=== PATIENT | female | born 1935 | race Caucasian/White ===

== ENCOUNTER 2017-07-30 06:24 | Inpatient (IN) | payer OTHER ==
[2017-07-04 10:23] VITALS: BMI 28.0
--- NOTE | 2017-07-04 10:55 | PAT Medication Instructions ---
Service Date Jul 04, 2017. Current Home Medication List Ascorbic Acid (Vitamin C), 1 TAB PO BID Atenolol (Tenormin), 50 MG PO QPM Calcium Carbonate-Vitamin D (Calcium + D), 1 TAB PO BID Cholecalciferol (Vitamin D3), 1 TAB PO QAM Cinnamon (Cinnamon Extract), 1 CAP PO NOON Citalopram Hydrobromide (Citalopram Hydrobromide), 1 TAB PO NOON Cyanocobalamin (Vitamin B12 500MCG), 500 MCG PO NOON Ibuprofen (Advil), 400 MG PO PRN Lisinopril/Hctz (Zestoretic 20MG/12.5MG), 1 TAB PO QAM Lovastatin (Mevacor), 20 MG PO QPM Metformin Hcl (Glucophage), 500 MG PO BID Multivitamin (Multivitamin), 1 TAB PO QPM Ocuvite Preservision (Ocuvite Preservision), 1 TAB PO BID [Iron], 1 TAB PO QPM [Magnesium], 250 MG PO NOON [Potassium], 99 MG PO QPM Medication Instructions For Your Scheduled Surgery - Check with surgeon for instructions: Ibuprofen (Advil), 400 MG PO PRN - Hold the following medications 2 weeks prior to surgery: Cinnamon (Cinnamon Extract), 1 CAP PO NOON - Hold the following medications the morning of surgery: Ascorbic Acid (Vitamin C), 1 TAB PO BID Calcium Carbonate-Vitamin D (Calcium + D), 1 TAB PO BID Cholecalciferol (Vitamin D3), 1 TAB PO QAM Cyanocobalamin (Vitamin B12 500MCG), 500 MCG PO NOON Lisinopril/Hctz (Zestoretic 20MG/12.5MG), 1 TAB PO QAM Metformin Hcl (Glucophage), 500 MG PO BID Multivitamin (Multivitamin), 1 TAB PO QPM Ocuvite Preservision (Ocuvite Preservision), 1 TAB PO BID [Magnesium], 250 MG PO NOON - Take the following medications the morning of surgery with a sip of water: Citalopram Hydrobromide (Citalopram Hydrobromide), 1 TAB PO NOON - Take the following medications as scheduled the night before surgery: [Iron], 1 TAB PO QPM [Potassium], 99 MG PO QPM Ocuvite Preservision (Ocuvite Preservision), 1 TAB PO BID Metformin Hcl (Glucophage), 500 MG PO BID Lovastatin (Mevacor), 20 MG PO QPM Calcium Carbonate-Vitamin D (Calcium + D), 1 TAB PO BID Atenolol (Tenormin), 50 MG PO QPM If you have any questions please call us at [phone] or [phone] or [phone]
--- NOTE | 2017-07-04 11:56 | DIAGNOSTIC IMAGING REPORT ---
CHEST 2 VIEWS ROUTINE CLINICAL HISTORY: Preoperative chest COMPARISON STUDY: 10/17/2009 FINDINGS: The cardiac and mediastinal contours are normal. There is no evidence of focal pulmonary consolidation. There is no evidence of failure. No pleural effusions are visualized.[ Surgical clips project over the left chest wall/breast IMPRESSION: No active disease in the chest. Electronically signed by: Adriano Walton M.D. 07/04/2017 11:55 AM Dictated Date/Time: 07/04/2017 11:54 AM
[2017-07-04 12:12] LABS: BASO % 0.2 %; BASO ABS # 0.01 K/uL (0-0.2); EOS % 1.3 %; EOS ABS # 0.06 K/uL (0-0.5); HEMATOCRIT 36.7 % (37-47); HEMOGLOBIN 12.7 g/dL (12.0-16.0); IG# 0.01 K/uL (0.00-0.02); LYMPH % 40.1 %; LYMPH ABS # 1.82 K/uL (1.2-3.4); MEAN CELL VOLUME 94.6 fL (80-100); MEAN CORPUSCULAR HEMOGLOBIN 32.7 pg (25-34); MEAN CORPUSCULAR HGB CONC 34.6 g/dl (32-36); MEAN PLATELET VOLUME 10.8 fL (7.4-10.4); MONO ABS # 0.68 K/uL (0.11-0.59); NEUT % 43.2 %; NEUT ABS # 1.96 K/uL (1.4-6.5); PLATELET COUNT 147 K/uL (130-400); RED CELL DISTRIBUTION WIDTH CV 13.7 % (11.5-14.5); RED CELL DISTRIBUTION WIDTH SD 47.1 fL (36.4-46.3); WHITE BLOOD COUNT 4.54 K/uL (4.8-10.8)
[2017-07-04 12:20] LABS: INR 0.9 (0.9-1.1); PTT PATIENT 23.8 SECONDS (21.0-31.0)
[2017-07-04 13:18] LABS: ALBUMIN 3.6 gm/dl (3.4-5.0); CREATININE 0.93 mg/dl (0.60-1.20); POTASSIUM 4.8 mmol/L (3.5-5.1)
--- NOTE | 2017-07-17 14:17 | HISTORY & PHYSICAL EXAMINATION ---
DATE OF ADMISSION: 07/30/2017 CHIEF COMPLAINT: Right hip pain. HISTORY OF PRESENT ILLNESS: Anuja is an 82-year-old female with a 6-month history of right hip pain. The patient rates her pain an 8/10. She has pain with her daily activities. She has limited standing and walking tolerance. Pain is worse with weightbearing. The patient has had injections without relief. She ambulates with a cane and does participate in exercise program. She has failed conservative treatment and is scheduled for right total hip arthroplasty. PAST MEDICAL HISTORY: Hypertension, diabetes. She denies heart disease or DVT. PAST SURGICAL HISTORY: Lumbar surgery, hysterectomy, carpal tunnel release, tonsil surgery and breast surgery. SOCIAL HISTORY: The patient denies alcohol or tobacco use. She lives in a single story home. She lives alone and is retired. FAMILY HISTORY: Negative for DVT. MEDICATIONS: PreserVision, escitalopram 20 mg, multivitamin, ferrous sulfate, vitamin C 500 mg, cinnamon bark 500 mg, vitamin B12, calcium, Advil 200 mg, atenolol 50 mg, metformin 500 mg, magnesium 200 mg, lovastatin 20 mg, lisinopril 10 mg, vitamin D3. ALLERGIES: LORTAB. REVIEW OF SYSTEMS: See HPI. Ten other systems reviewed, all negative. PHYSICAL EXAMINATION: VITAL SIGNS: Height 5 feet 4 inches, weight 163 pounds, BMI 28. GENERAL: This is a well-developed, well-nourished female who is alert and oriented x3. Mood and affect are appropriate. HEENT: Normocephalic, atraumatic. Mucous membranes are moist and intact. NECK: Supple without lymphadenopathy. HEART: Regular rate and rhythm without murmurs, rubs or gallops. LUNGS: Clear to auscultation without wheezes or rhonchi. ABDOMEN: Soft and nontender. Bowel sounds are equal and active. EXTREMITIES: No ecchymosis, redness or warmth. Log roll of the hip reproduces pain in the groin. Range of motion is decreased. The patient has decreased sensation along the anterior thigh. She has full dorsi and plantar flexion and is otherwise neurovascularly intact. X-RAY EXAMINATION: AP and lateral views show joint space narrowing and osteophyte formation. IMPRESSION: Degenerative joint disease, right hip. PLAN: The patient will be admitted for a right total hip arthroplasty, direct anterior. We will plan on aspirin 325 mg for DVT prophylaxis. She is going to do home health versus inpatient rehab upon discharge. Her PCP is Dr. Lu in [place].
[2017-07-30] VITALS (8 sets, daily range): BP systolic 104–188; BP diastolic 55–89; PULSE 58–69; TEMP 36.3–36.6; O2SAT 94–100; Ht 162.6 cm; Wt 74.7 kg
[~2017-07-30] VITALS: Ht 162.6 cm; Wt 74.7 kg
[~2017-07-30 06:24] MED LIST: ACETAMINOPHEN 500 MG TAB PO SCH; ASCA500 PO; ATEN50TA8 PO; CALC600T9 PO; CEFAZOLIN 1000MG IV PUSH 7.5 ML IV SCH; CHOL1000 PO; CINN500C13 PO; CITA20TA4 PO; CYAN500T13 PO; CeleBREX 200 MG CAP PO SCH; DEXAMETHASONE 4 MG TAB PO SCH; FAMOTIDINE 20 MG TAB PO SCH; GABAPENTIN 300 MG CAP PO SCH; GLC/500 PO; IBUP-1277 PO; IRON PO; LACTATED RINGER'S 1000ML 1,000 ML IV SCH; LACTATED RINGER'S 1000ML 500 ML IV SCH; LISI-787 PO; LOVA20TA4 PO; MAGNESIUM PO; METOCLOPRAMIDE HCL 10 MG TAB PO SCH; MULT-190 PO; MULT-506 PO; POTASSIUM PO; ROPIVACAINE 5MG/ML 30 ML 150 MG, BUPIVACAINE 0.5% MPF INJ 30 ML, EpINEphrine HCL INJ 0.... INFIL SCH
[2017-07-30] MEDS ORDERED: BUPIVACAINE 0.5 % 5 MG/1 ML PF 10ML VIAL ONE (06:32)
[2017-07-30] MEDS ORDERED: LIDOCAINE HCL 2% 2 ML VIAL (20MG/ML) ONE (06:54)
[2017-07-30] MEDS ORDERED: MIDAZOLAM HCL 1 MG/ML 2ML VIAL ONE (06:54)
[2017-07-30] MEDS ORDERED: KETAMINE HCL INJ 50 MG/ML 10 ML VIAL ONE (06:54)
[2017-07-30] MEDS ORDERED: FENTANYL CITRATE INJ 50 MCG/1 ML 2 ML VIAL ONE (06:54)
[2017-07-30] MEDS ORDERED: PROPOFOL IV EMULSION 10 MG/ML 20 ML VIAL IV ONE (06:54)
[2017-07-30] MEDS ORDERED: EpHEDrine SULFATE INJ 50 MG/ML AMP IV PRN (07:00)
[2017-07-30] MEDS ORDERED: ONDANSETRON INJ 2 MG/ML 2 ML VIAL IV PRN ×2 (07:00→10:45)
[2017-07-30] MEDS ORDERED: HYDROmorphone INJ 2 MG/ML SYR/VIAL IV PRN (07:00)
[2017-07-30] MEDS ORDERED: PHENYLEPHRINE 100MCG/ML 5ML SYR IV PRN (07:00)
[2017-07-30] MEDS ORDERED: ATROPINE SULFATE 0.1 MG/ML 5ML SYR IV PRN (07:00)
[2017-07-30] MEDS ORDERED: BACITRACIN 50000 UNIT VIAL ONE (07:07)
[2017-07-30] MEDS ORDERED: ORTHO JOINT ANESTHETIC ONE (07:07)
[2017-07-30] MEDS ORDERED: POVIDONE-IODINE OP SOLN 30 ML BTL ONE (07:07)
[2017-07-30] MEDS: TRANEXAMIC ACID INJ 1,000 MG x 2 Bags IV SCH ×4 (08:01→12:51)
--- NOTE | 2017-07-30 08:02 | History & Physical Bridge Note ---
H&P Re-Evaluation Bridge Note: I have examined the patient, reviewed the History & Physical and in the interval since the performance of the History & Physical I have noted the following changes of clinical significance: No changes noted
[2017-07-30] MEDS ORDERED: EpHEDrine SULFATE 50MG/5ML SYR ONE (09:14)
--- NOTE | 2017-07-30 10:28 | [facility] Post Operative Brief Note ---
Immediate Operative Summary Operative Date Jul 30, 2017. Pre-Operative Diagnosis Degenerative joint disease, right hip Post-Operative Diagnosis Degenerative joint disease, right hip Procedure(s) Performed Right Anterior Total Hip Arthroplasty Surgeon Dr. Bender Form Tamper Operator Surgeon(s) Ruth Ernandez PA-C Estimated Blood Loss 200 mL Findings Consistent with Post-Op Diagnosis Fluids (cc crystalloids) 1400 Specimens A: Right Femoral Head Drains None Anesthesia Type MAC Spinal Regional Complication(s) none Disposition Disposition: Recovery Room / PACU
[2017-07-30] MEDS ORDERED: MoRPHine SULFATE 2 MG/ML CARP IV PRN (10:45)
--- NOTE | 2017-07-30 11:27 | DIAGNOSTIC IMAGING REPORT ---
INTRAOPERATIVE RIGHT HIP 2 VIEWS CLINICAL HISTORY: Right hip arthroplasty COMPARISON STUDY: None FINDINGS: 2 fluoroscopic spot images are provided for interpretation. 62 seconds of fluoroscopic time was utilized. There are postsurgical changes of a total right hip arthroplasty. There is no dislocation. IMPRESSION: Postsurgical changes of a total right hip arthroplasty. Electronically signed by: Adriano Walton M.D. 07/30/2017 11:26 AM Dictated Date/Time: 07/30/2017 11:25 AM
--- NOTE | 2017-07-30 11:41 | DIAGNOSTIC IMAGING REPORT ---
SINGLE VIEW PELVIS; SINGLE VIEW RIGHT HIP CLINICAL HISTORY: Postoperative examination. FINDINGS: An AP portable view of the hips and pelvis with a crosstable lateral portable view of the right hip are obtained. A bipolar right hip arthroplasty is in near-anatomic alignment. A single cortical lag screw transfixes the acetabular cup. No acute fracture is identified. There are expected postoperative changes overlying the right hip including subcutaneous gas and soft tissue swelling. Degenerative sclerosis and bony overgrowth are noted at the pubic symphysis. Moderate arthritic change is seen in the left hip. IMPRESSION: Expected postoperative findings status post right hip arthroplasty. No acute fracture is seen. Electronically signed by: Oh Felix M.D. 07/30/2017 11:40 AM Dictated Date/Time: 07/30/2017 11:39 AM
--- NOTE | 2017-07-30 11:42 | Anesthesiology Progress Note ---
Anesthesia Post Op Note Date & Time Jul 30, 2017 at 11:42 Vital Signs Pain Intensity: 0 Vital Signs Past 12 Hours Date Time Temp Pulse Resp B/P (MAP) Pulse Ox O2 Delivery O2 Flow Rate FiO2 07/30/17 11:35 36.3 56 16 143/59 100 Nasal Cannula 3 07/30/17 11:25 57 16 139/68 100 Nasal Cannula 3 07/30/17 11:15 57 16 159/71 100 Nasal Cannula 3 07/30/17 11:05 60 16 153/67 100 Nasal Cannula 3 07/30/17 10:57 36.3 59 16 154/60 96 Nasal Cannula 3 07/30/17 07:30 36.4 69 20 188/89 99 Room Air Notes Mental Status: alert / awake / arousable, participated in evaluation Pt Amnestic to Procedure: Yes Nausea / Vomiting: adequately controlled Pain: adequately controlled Airway Patency, RR, SpO2: stable & adequate BP & HR: stable & adequate Hydration State: stable & adequate Anesthetic Complications: no major complications apparent
[2017-07-30] MEDS ORDERED: GLUCOSE 10 TABS/TUBE PO PRN (12:30)
[2017-07-30] MEDS ORDERED: GLUCOSE 40% GEL 15 GM TUBE PO PRN (12:30)
[2017-07-30] MEDS ORDERED: DEXTROSE 50% 50 ML SYR IV PRN (12:30)
[2017-07-30] MEDS ORDERED: GLUCAGON FOR INJ 1 MG VIAL SQ PRN (12:30)
--- NOTE | 2017-07-30 13:12 | [facility] Operative Report ---
Operative Report Operative Date Jul 30, 2017. Pre-Operative Diagnosis Degenerative joint disease, right hip Post-Operative Diagnosis Degenerative joint disease, right hip Procedure(s) Performed Right Anterior Total Hip Arthroplasty Surgeon Dr. Bender Prison Guard Surgeon(s) Ruth Ernandez PA-C Estimated Blood Loss 200 mL Findings See dictated op note Fluids 1400 Specimens A: Right Femoral Head Drains None Anesthesia Type MAC Spinal Regional Complication(s) none Disposition Recovery Room / PACU Indications The patient is a 82-year-old female who presents with severe progressive right hip DJD who has failed outpatient conservative treatments. I indicated the patient for a total hip replacement and the risks and benefits were explained in detail which included but not limited to infection, bleeding, blood clot, damage to surrounding bone, nerves, vessels, soft tissue, hip dislocation, failure of the prosthesis, leg length discrepancy, need for additional surgery and . The patient agreed to proceed with replacement of the hip and informed consent was obtained. Description of Procedure COMPONENTS USED: [employer] hip system: Acetabulum size 48, femur size 5 standard offset, femoral head 32+0, liner 32/48, acetabular screw 25mm. DESCRIPTION OF PROCEDURE: Following satisfactory spinal, the patient was supine. The left leg was placed in the well leg zuñiga and the right leg in the traction device. The right leg was prepared with ChloraPrep and draped sterilely. Following a surgical time-out, an anterior approach in the interval between the sartorius and tensor muscles was completed. Circumflex femoral vessels were identified and ligated and anterior capsulotomy was performed revealing the arthritic femoral neck and head. A femoral neck cut was made with reciprocating saw and the bone fragments removed. The acetabular self- retraining retractor was placed. Acetabular reaming was completed under fluoroscopic guidance, a 48 shell was impacted into an anatomic position and secured with a dome screw. Local anesthetic was placed and following irrigation , the polyethylene liner was placed. The femur was placed into position of external rotation, extension and adduction. Femoral canal was prepared up to the size 5 standard offset. Trial reduction with a +0 neck length head showed good soft tissue tension, leg lengths restored, and good fit and fill of the proximal canal using fluoroscopic landmarks. The hip was dislocated. The trial component was removed. The final implant was placed. The hip was irrigated and reduced. A Betadine soak was performed. After 3 minutes, the Betadine was irrigated. More local anesthetic was injected in the surround soft tissues. The capsule was then closed with 1-0 Vicryl interrupted. The fascia was closed with a running suture of #1 Vicryl, the subcutaneous tissues with 1 and 2-0 Vicryl and the skin with a running subcuticular stitch of 3-0 V-Loc. Dermabond and a dry dressing were applied. The patient tolerated the procedure well and was transported to PACU in stable condition. Due to the complex nature of the procedure, the entire surgery was performed with the operational assistance of Lucille Ernandez PA-C. The certified nursing assistant, under direct supervision, was involved in the actual performance of all aspects of the surgical procedure including hemostasis, tissue retraction and incision, instrument management, patient positioning, and wound closure. I attest to the content of the Intraoperative Record and any orders documented therein. Any exceptions are noted below. I attest to the content of the Intraoperative Record and any orders documented therein. Any exceptions are noted below.
--- NOTE | 2017-07-30 13:26 | Medical Consult ---
Consultation Note Date of Service Jul 30, 2017. ([place] ., [place]) Consultation Note CONSULTATION CHIEF COMPLAINT right hip pain HISTORY OF PRESENT ILLNESS. Anuja is an 82-year-old female seen in consultation at the request of Dr. Bender for medical management postoperatively. She underwent a right anterior total hip replacement today by Dr. Anthony. She has been having right sided hip pain for approximately the last 6 months which is failed conservative measures. PAST MEDICAL HISTORY: Hypertension diabetes mellitus type 2 on metformin. Left breast cancer PAST SURGICAL HISTORY: She has had lumbar surgery 2, hysterectomy, carpal Tunl. release, lumpectomy on the left with 1 lymph node removed. SOCIAL HISTORY: Patient is a non-smoker nondrinker lives in silk single-story home. She is retired and lives alone. FAMILY HISTORY: Family history was reviewed she denies any significant cancers diabetes or history of DVT. MEDICATIONS: 1. preservation 2. Except helping him 20 mg daily 3. Multivitamin daily 4. Vitamin C 500 mg daily 5. Metformin 500 mg twice daily 6. Lovastatin 20 mg daily 7. Lisinopril 10 mg daily 8. Vitamin D3. ALLERGIES: Lortab which cause hypotension REVIEW OF SYSTEMS: A comprehensive 10 point review of system was reviewed. All systems were negative unless outlined in history of present illness. PHYSICAL EXAM: General Mrs. Cleaning is a 82-year-old white female in no acute distress. She is seen postoperatively. Vital signs, temp 36.3, pulse 57, respiratory rate 16, blood pressure 159/71, pulse ox is 100% on 3 L of oxygen. HEENT Head was normocephalic atraumatic. Pupils are equal and reactive to light. There is no scleral icterus. Oral mucosa is moist. Neck is supple. Cardiovascular Heart is with an S1-S2 and regular I do not appreciate any murmurs rubs or gallops Respiratory Lungs were essentially clear anteriorly and posteriorly auscultation Abdomen Abdomen is soft nontender nondistended she had some hypoactive bowel sounds no obvious masses or organomegaly. Muscular skeletal Patient is able to move all extremities with purpose. CMS to the right lower extremity is good. There is a dressing on the right anterior hip which is dry and intact. Neuro Patient is alert awake and oriented 3. CMS to the right lower extremity is good. Skin Skin is warm dry and intact. Dressing to the right hip is intact as well. Labs WBC was 4.54, hemoglobin 12.7, hematocrit 36.7 PT 9.9, INR 0.9, sodium 131 potassium 4.8 chloride 96 carbon dioxide 30 BUN 22 ASSESSMENT AND PLAN 1. Right anterior hip replacement. Per Orthopedics. She currently has no pain to the right lower extremity and CMS to the right lower extremity is good. 2. Diabetes mellitus type 2. We will hold her metformin and start her on a low -dose sliding scale insulin. She will have blood sugars before meals and at bedtime. 3. Hypertension. Patient will be maintained on lisinopril. 4. Hyperlipidemia -pravastatin 5. DVT prophylaxis per orthopedic guidelines ASA 325mg BID Thanks you for consultation will continue to follow along with care. ([place] ., [place]) Reviewed: Pt Seen/Exam by Me (Phoebe Camara DO) History Pt is doing well post-op. She has a tray and is tolerating PO. No hip pain yet. Denies chest pain, SOB. Agree with HPI/ROS as noted by FLEXOGRAPHIC PRESS SET UP OPERATOR (Phoebe Camara DO) General Appearance: WD/WN, no apparent distress Eye Exam: bilateral eye normal inspection, bilateral eye other (nml sclera) Respiratory: normal breath sounds, no respiratory distress Cardiovascular: normal peripheral pulses, regular rate, rhythm Gastrointestinal: non tender, soft Extremities: non-tender, no pedal edema Neurologic/Psychiatric: alert, normal mood/affect, oriented x 3 Skin Characteristics: normal color, warm/dry (Phoebe Camara DO) Assessment/Plan Agree with plan as outlined above Doing well post-op HTN, DM as noted (Phoebe Camara DO)
[2017-07-30] MEDS: CITALOPRAM 20 MG TAB PO SCH (13:30)
[2017-07-30] MEDS: KETOROLAC TROMETHAMINE 15 MG/ML VIAL IV. SCH ×2 (13:31→20:45)
[2017-07-30] MEDS: INSULIN ASPART 100 UNITS/ML 3 ML PEN SC SCH ×3 (13:32→20:51)
[2017-07-30] MEDS: SODIUM CHLORIDE 0.9% 1000ML 1,000 ML IV SCH ×2 (13:40→21:55)
[2017-07-30] MEDS: CEFAZOLIN IV 1,000 MG in SYRINGE 0 ML IV SCH ×2 (15:18→23:30)
--- NOTE | 2017-07-30 19:06 | Orthopedic Progress Note ---
Orthopedic Progress Note Date of Service Jul 30, 2017. Subjective Reports: feeling well, calf pain, pain controlled w PO medications, Denies: complaints, chest pain, SOB, nausea / vomiting, light headedness Additional Notes: Patient seen laying in bed, comfortable, pain well controlled, no acute issues. Objective NAD, AOx3 RLE NVSI +EHL/FHL/TA/GS SILT grossly, CR< 2 seconds, +2 DP pulse, compartments soft NT, dressing CDI Date Time Temp Pulse Resp B/P (MAP) Pulse Ox O2 Delivery O2 Flow Rate FiO2 07/30/17 15:12 36.3 65 18 104/55 (71) 99 Nasal Cannula 2.0 07/30/17 15:10 Nasal Cannula 2.0 07/30/17 13:55 68 16 123/70 (87) 100 07/30/17 12:49 58 12 159/70 (99) 100 Nasal Cannula 2.0 07/30/17 12:25 36.5 60 16 171/79 (109) 100 Nasal Cannula 2.0 07/30/17 11:55 Nasal Cannula 2.0 07/30/17 11:55 100 Nasal Cannula 2.0 07/30/17 11:55 36.6 60 18 149/63 (91) 100 Nasal Cannula 2.0 07/30/17 11:35 36.3 56 16 143/59 100 Nasal Cannula 3 07/30/17 11:25 57 16 139/68 100 Nasal Cannula 3 07/30/17 11:15 57 16 159/71 100 Nasal Cannula 3 07/30/17 11:05 60 16 153/67 100 Nasal Cannula 3 07/30/17 10:57 36.3 59 16 154/60 96 Nasal Cannula 3 07/30/17 07:30 36.4 69 20 188/89 99 Room Air Assessment & Plan Assessment: s/p R anterior DAVID Plan: -Ancef x 24 -DVT ppx - Plavix/ASA -WBAT RLE -PT/OT -PO XR: Well aligned, well fixed DAVID, without evidence of fracture/dislocation -am labs -DC planning
[2017-07-30] MEDS ORDERED: PHARMACY GLYCEMIC MGMT CONSULT SCH (19:20)
--- NOTE | 2017-07-30 19:31 | Pharmacy Progress Note ---
Glycemic Control Intl Consult Date of Service Jul 30, 2017. Scope Glycemic Pharmacist consulted by Dr Bender on 07/30/17 for glycemic control and to write orders per [facility] inpatient glycemic control protocol Objective Weight (Kilograms): 74.700 Accuchecks BSG (last 24hrs): Test 07/30/17 07:14 07/30/17 11:04 07/30/17 12:02 07/30/17 17:17 Bedside Glucose 158 mg/dl (70-90) 180 mg/dl (70-90) 174 mg/dl (70-90) 245 mg/dl (70-90) Recent Pertinent Medications Outpatient Anti-diabetic Regimen: * Metformin 500mg PO BID * A1c = 7 % 07/04/17 The patient is currently receiving: * Correctional Insulin: Novolog Correction per scale ACHS Goal Range: Low 100 mg/dL - High 160 mg/dL Correction Factor: 30 mg/dL/unit Risk Factors for Insulin Resistance: * Steroids: Dexamethasone 8mg PO preop * Infection: Ancef pre and post op * Recent Surgery: s/p DAVID today * Diet: Type 2 DM Assessment & Plan ASSESSMENT: * 82 year old type 2 diabetic, well controlled on metformin at home, admitted for right DAVID. Pt received 1 dose of PO Dexamethasone 8mg preop, causing hyperglycemia postop. * Patient requires a carb ratio, as steroids have greatest effect on prandial BSGs, and a one time dose of Lantus * Blood sugars steadily increasing, pharmacy coonsult received after patient has already had lunch and dinner without insulin coverage for CHO, so we are behind on controlling steroid induced hyperglycemia, will add accuchecks overnight. * Pt is maintained on oral antidiabetic agents as an outpatient * Oral agents are not recommended for inpatient use d/t drug interactions, changing PO intake, and difficulty titrating for acute hyper/hypoglycemia. ADA recommends re-initiating outpatient oral agents 1-2 days prior to discharge if/ when appropriate if they were held on admission. * Will hold oral agents for admission and utilize SQ basal bolus insulin regimen which is the recommended regimen for inpatient glycemic control. * Will initiate weight based insulin dosing for insulin heriberto patient and titrate based on BSG trends. * ADA & AACE recommend a goal blood sugar range 140-180 mg/dl for the majority of critically ill & non-critically ill patients. However, more stringent targets may be selected in individual cases. Will utilize more stringent goal of 110-140mg/dl based on patient age & comorbidities. Additionally, tighter glycemic control is warranted to facilitate wound/infection healing. PLAN FOR INPATIENT GLYCEMIC CONTROL: * Holding outpatient oral diabetes medications * Basal insulin with LANTUS 15 units SQ x 1 dose now, will add an additional dose tomorrow morning for sustained hyperglycemia * Correctional Insulin with NOVOLOG per scale ACHS or Q6hrs while NPO and at 0000,0400 * Goal Range: Low 110 mg/dL - High 140 mg/dL * Correction Factor: 30 mg/dL/unit * Nutritional / Prandial insulin per carb ratio of 1 unit per 10 grams CHO consumed * Please note that the plan above was derived based on current level of insulin resistance and hospital stress. These recommendations are appropriate for inpatient admission only. Plan of care upon discharge will need to be reassessed to avoid potential outpatient hypo/hyperglycemia. Thank you.
[2017-07-30] MEDS ORDERED: LANTUS PER UNIT CHARGE SQ ONE (19:45)
[2017-07-30] MEDS: ASPIRIN 325 MG ECTAB PO SCH (20:46)
[2017-07-30] MEDS: DOCUSATE SODIUM 100 MG CAP PO SCH (20:47)
[2017-07-30] MEDS ORDERED: MULTIVITAMIN TAB PO SCH (21:00)
[2017-07-30] MEDS ORDERED: LOVASTATIN 20 MG TAB PO SCH (21:00)
[2017-07-30] MEDS ORDERED: METFORMIN HCL 500 MG TAB PO SCH (21:00)
[2017-07-30] MEDS ORDERED: SENNA 8.6 MG TAB PO SCH (21:00)
[2017-07-31] VITALS (7 sets, daily range): BP systolic 109–131; BP diastolic 62–70; PULSE 65–72; TEMP 36.5–36.7; O2SAT 95–100
[2017-07-31] MEDS: INSULIN ASPART 100 UNITS/ML 3 ML PEN SC SCH ×4 (00:28→12:38)
[2017-07-31] MEDS: TRAMADOL HCL 50 MG TAB PO PRN ×2 (00:31→13:14)
[2017-07-31] MEDS: KETOROLAC TROMETHAMINE 15 MG/ML VIAL IV. SCH ×2 (02:30→08:29)
[2017-07-31 06:26] LABS: HEMOGLOBIN 9.2 g/dL (12.0-16.0); IG# 0.01 K/uL (0.00-0.02); LYMPH % 13.6 %; LYMPH ABS # 0.99 K/uL (1.2-3.4); MEAN CELL VOLUME 92.8 fL (80-100); MEAN CORPUSCULAR HEMOGLOBIN 31.6 pg (25-34); MEAN CORPUSCULAR HGB CONC 34.1 g/dl (32-36); MEAN PLATELET VOLUME 10.4 fL (7.4-10.4); MONO % 12.9 %; MONO ABS # 0.94 K/uL (0.11-0.59); NEUT % 73.4 %; NEUT ABS # 5.35 K/uL (1.4-6.5); PLATELET COUNT 120 K/uL (130-400); RED CELL DISTRIBUTION WIDTH CV 13.3 % (11.5-14.5); RED CELL DISTRIBUTION WIDTH SD 45.2 fL (36.4-46.3); WHITE BLOOD COUNT 7.29 K/uL (4.8-10.8)
[2017-07-31] MEDS: SODIUM CHLORIDE 0.9% 1000ML 1,000 ML IV SCH (06:42)
[2017-07-31 06:57] LABS: CALCIUM 7.6 mg/dl (8.5-10.1); CREATININE 0.78 mg/dl (0.60-1.20); POTASSIUM 3.6 mmol/L (3.5-5.1)
--- NOTE | 2017-07-31 08:07 | Orthopedic Progress Note ---
Orthopedic Progress Note Date of Service Jul 31, 2017. Subjective Post OP Day: 1 Reports: feeling well, Denies: chest pain, SOB, nausea / vomiting, light headedness, calf pain Objective calves soft nontender, N/V intact, hip located, capillary refill less than 2 sec., dressing C/D/I, A&O x3, toes mobile Date Time Temp Pulse Resp B/P (MAP) Pulse Ox O2 Delivery O2 Flow Rate FiO2 07/31/17 03:40 36.5 65 18 127/64 (85) 95 Room Air 07/30/17 23:25 Room Air 07/30/17 22:45 36.5 60 18 131/69 (89) 95 Room Air 07/30/17 19:49 36.4 61 18 118/68 (85) 94 Room Air 07/30/17 15:12 36.3 65 18 104/55 (71) 99 Nasal Cannula 2.0 07/30/17 15:10 Nasal Cannula 2.0 07/30/17 13:55 68 16 123/70 (87) 100 07/30/17 12:49 58 12 159/70 (99) 100 Nasal Cannula 2.0 07/30/17 12:25 36.5 60 16 171/79 (109) 100 Nasal Cannula 2.0 07/30/17 11:55 Nasal Cannula 2.0 07/30/17 11:55 100 Nasal Cannula 2.0 07/30/17 11:55 36.6 60 18 149/63 (91) 100 Nasal Cannula 2.0 07/30/17 11:35 36.3 56 16 143/59 100 Nasal Cannula 3 07/30/17 11:25 57 16 139/68 100 Nasal Cannula 3 07/30/17 11:15 57 16 159/71 100 Nasal Cannula 3 07/30/17 11:05 60 16 153/67 100 Nasal Cannula 3 07/30/17 10:57 36.3 59 16 154/60 96 Nasal Cannula 3 Laboratory Results 24 Hours: Test 07/31/17 05:45 White Blood Count 7.29 K/uL Red Blood Count 2.91 M/uL Hemoglobin 9.2 g/dL Hematocrit 27.0 % Mean Corpuscular Volume 92.8 fL Mean Corpuscular Hemoglobin 31.6 pg Mean Corpuscular Hemoglobin Concent 34.1 g/dl Platelet Count 120 K/uL Mean Platelet Volume 10.4 fL Neutrophils (%) (Auto) 73.4 % Lymphocytes (%) (Auto) 13.6 % Monocytes (%) (Auto) 12.9 % Eosinophils (%) (Auto) 0.0 % Basophils (%) (Auto) 0.0 % Neutrophils # (Auto) 5.35 K/uL Lymphocytes # (Auto) 0.99 K/uL Monocytes # (Auto) 0.94 K/uL Eosinophils # (Auto) 0.00 K/uL Basophils # (Auto) 0.00 K/uL Prothromb Time International Ratio 1.0 Prothrombin Time 10.4 SECONDS Assessment & Plan Assessment: POD#1 s/p R anterior DAVID Plan: -Ancef x 24 -DVT ppx - ASA 325 BID -WBAT RLE -PT/OT -PO XR: Well aligned, well fixed DAVID, without evidence of fracture/dislocation -am labs -DC planning- DC HOME WITH ADVANTAGE, POSSIBLY LATER TODAY IF DOES WELL WITH PT PAIN MANAGEMENT- TRAMADOL
[2017-07-31] MEDS ORDERED: SENN-61 PO (08:10)
[2017-07-31] MEDS ORDERED: ULT50X PO (08:10)
[2017-07-31] MEDS ORDERED: CLB200 PO (08:10)
[2017-07-31] MEDS ORDERED: ONDA-170 PO (08:10)
[2017-07-31] MEDS ORDERED: ASPEC325 PO (08:10)
--- NOTE | 2017-07-31 08:12 | Discharge Instructions ---
Discharge Instructions Date of Service Jul 31, 2017. Admission Reason for Admission: Right Hip Osteoarthritis Discharge Discharge Diagnosis / Problem: sp right DAVID Discharge Goals Goal(s): Decrease discomfort, Improve function, Increase independence Activity Recommendations Activity Limitations: per Instructions/Follow-up section . Instructions / Follow-Up Instructions / Follow-Up ACTIVITY RECOMMENDATIONS: SELF CARE INSTRUCTIONS AFTER TOTAL HIP REPLACEMENT Until the incision and soft tissues around your hip have healed, there is a possibility that the hip prosthesis could dislocate. A. Observe the following precautions to prevent dislocation: 1. Don't bend your hip greater than 90 degrees. 2. Avoid crossing your legs or ankles while standing or lying. 3. Sit with your feet placed 6 inches apart. 4. When sitting, keep your knees below your hips. Sit on a firm surface, avoid deep, soft chairs and couches. Use an elevated toilet seat in the bathroom. 5. Don't bend over at the waist. Use a long handled shoehorn and a sock aid to help you put on your shoes and socks. A classification clerk can help you picker packer objects that are too high or too low to reach. 6. Keep car riding to a minimum for at least one month after surgery. B. Your balance may be shaky for a while. Use crutches or a walker until directed by your doctor. C. Use hand rails when walking on stairs. D. Wear low heeled shoes with non-slip soles. E. Be sure that your floors are free of things that could trip you - throw rugs , electrical cords, small objects. Avoid wet and waxed floors, especially with crutches and canes. F. Try to walk several times a day with rest periods between. G. Continue with all the exercises taught to you in the hospital. Again, make walking a part of your daily routine. SPECIAL CARE INSTRUCTIONS: VERY IMPORTANT TO READ AND REVIEW A. You may still be at risk for phlebitis and blood clots. 1. Wear surgical stockings (GEORGINA hose) for 2 weeks after surgery to improve circulation and reduce swelling. 2. Take Aspirin 325 mg twice daily for 4 weeks or as directed by your doctor. This is your blood thinner. 3. High risk patients may be prescribed a stronger blood thinner if necessary. 4. If you are on Coumadin normally, your family doctor/repairer kiln car should monitor your blood work. Expect a phone call the day of or the day after bloodwork is drawn to adjust your dosage. B. You must take antibiotics before having dental work, bladder, bowel and other surgery. Your doctor will provide you with a permanent card to carry describing precautions. C. Call [facility] if you have a fever, redness or swelling around the incision, cloudy drainage from incision, or sudden increase in pain in your hip, not relieved by your regular pain medication. D. Please call the office at if you have any concerns or questions about your operation or recovery. * YOU MAY SHOWER, NO TUB BATHS UNTIL CLEARED BY YOUR DOCTOR. * WEAR GEORGINA HOSE 20 HOURS PER DAY FOR 2 WEEKS. * YOU SHOULD USE A WALKER OR CRUTCHES FOR 2-4 WEEKS. THIS WILL HELP PREVENT STRAIN ON YOUR HIP MUSCLE AND ALLOW IT TO HEAL PROPERLY. YOU MAY WEAN TO A CANE TOLERATED. * MOST PATIENTS WILL HAVE HOME NURSING FOR THERAPY. IF YOU DECIDE TO DO OUTPATIENT PHYSICAL THERAPY, PLEASE SCHEDULE THIS 3 TIMES PER WEEK. * DERMABOND Prineo- This is a mesh tape dressing that is covered with glue. It should remain in place until the incision is properly healed, usually 10-14 days. This dressing is designed to naturally slough off. You may trim the excess mesh tape as it peels off. Incision may be briefly wet in a shower. Dry immediately by blotting with a clean, dry towel. Do not bath or swim until instructed by your doctor. Do not scratch, rub, or pick at the dressing. Do not apply any topical ointments or lotions until dressing is completely removed and/or instructed by your doctor. There may be a small piece of suture material at one end of your incision. Do not pull or trim this. If it is bothersome or catching on clothing, you may cover it with a band-aid. FOLLOW UP VISIT: If appointment is not already scheduled: Please call [facility] to make a follow-up appointment for 2 weeks after your surgery at . Current Hospital Diet Patient's current hospital diet: Diabetes Type 2 Diet Discharge Diet Recommended Diet: Regular Diet Procedures Procedures Performed: Right Anterior Total Hip Arthroplasty Pending Studies Studies pending at discharge: no Laboratory Results Hemoglobin A1c Test 07/04/17 11:03 Range/Units Estimated Average Glucose 154 mg/dl Hemoglobin A1c 7.0 H 4.5-5.6 % Medical Emergencies . Who to Call and When: Medical Emergencies: If at any time you feel your situation is an emergency, please call 911 immediately. . Non-Emergent Contact Non-Emergency issues call your: Surgeon . "Provider Documentation" section prepared by Ruth Ernandez. .
[2017-07-31] MEDS: DOCUSATE SODIUM 100 MG CAP PO SCH (08:30)
[2017-07-31] MEDS: ASPIRIN 325 MG ECTAB PO SCH (08:30)
[2017-07-31] MEDS ORDERED: LISINOPRIL/HCTZ 20/12.5MG TAB PO SCH (09:00)
[2017-07-31] MEDS ORDERED: LISINOPRIL 20 MG TAB PO SCH (09:00)
[2017-07-31] MEDS ORDERED: PANTOprazole SOD 40 MG TAB PO SCH (09:00)
[2017-07-31] MEDS ORDERED: LANTUS PER UNIT CHARGE SQ ONE (09:00)
--- NOTE | 2017-07-31 09:07 | Hospitalist Progress Note ---
Hospitalist Progress Note Date of Service Jul 31, 2017. (Angie Ríos PA-C) Subjective Pt evaluation today including: conversation w/ patient, physical exam, chart review, lab review, review of studies Pain: None PO Intake: Good Voiding: no voiding problems The patient was seen and examined this morning. Pt reports doing well overall, she has no acute complaints. Pt is eating well. Passing gas, no BM yet but had one yesterday. Pt was up walking with PT/OT and her pain is minimal. Plans to have to have home health services. She anticipates possible discharge today. Constitutional: No fever, No chills, No sweats Eyes: No discharge, No diplopia ENT: No nasal symptoms, No sore throat, No tinnitus Respiratory: No cough, No sputum, No wheezing Cardiovascular: No chest pain, No PND Abdomen: No pain, No nausea, No vomiting, No diarrhea, No constipation Musculoskeletal: No joint pain, No swelling Female : No dysuria, No hematuria Neurologic: No weakness, No numbness/tingling, No balance problems Endo: No fatigue Skin: No rash, No itch (Angie Ríos PA-C) Objective Vital Signs Date Time Temp Pulse Resp B/P (MAP) Pulse Ox O2 Delivery O2 Flow Rate FiO2 07/31/17 08:59 96 Room Air 07/31/17 07:50 36.5 66 14 130/70 (90) 96 Room Air 07/31/17 07:15 Room Air 07/31/17 03:40 36.5 65 18 127/64 (85) 95 Room Air 07/30/17 23:25 Room Air 07/30/17 22:45 36.5 60 18 131/69 (89) 95 Room Air 07/30/17 19:49 36.4 61 18 118/68 (85) 94 Room Air 07/30/17 15:12 36.3 65 18 104/55 (71) 99 Nasal Cannula 2.0 07/30/17 15:10 Nasal Cannula 2.0 07/30/17 13:55 68 16 123/70 (87) 100 07/30/17 12:49 58 12 159/70 (99) 100 Nasal Cannula 2.0 07/30/17 12:25 36.5 60 16 171/79 (109) 100 Nasal Cannula 2.0 07/30/17 11:55 Nasal Cannula 2.0 07/30/17 11:55 100 Nasal Cannula 2.0 07/30/17 11:55 36.6 60 18 149/63 (91) 100 Nasal Cannula 2.0 07/30/17 11:35 36.3 56 16 143/59 100 Nasal Cannula 3 07/30/17 11:25 57 16 139/68 100 Nasal Cannula 3 07/30/17 11:15 57 16 159/71 100 Nasal Cannula 3 07/30/17 11:05 60 16 153/67 100 Nasal Cannula 3 07/30/17 10:57 36.3 59 16 154/60 96 Nasal Cannula 3 (Angie Ríos PA-C) Physical Exam General Appearance: WD/WN, no apparent distress Eyes: PERRL, EOMI ENT: hearing grossly normal, pharynx normal Neck: supple, no JVD Respiratory/Chest: lungs clear, no respiratory distress, no accessory muscle use Cardiovascular: regular rate, rhythm, no murmur Abdomen: normal bowel sounds, non tender, soft Extremities: non-tender, no pedal edema, no calf tenderness, + pertinent finding (R hip dressing c/d/i) Neurologic/Psychiatric: alert, normal mood/affect, oriented x 3 Skin: normal color, warm/dry (Angie Ríos PA-C) Laboratory Results Last 24 Hours Test 07/30/17 11:04 07/30/17 12:02 07/30/17 17:17 07/30/17 20:47 Bedside Glucose 180 mg/dl 174 mg/dl 245 mg/dl 260 mg/dl Test 07/31/17 00:07 07/31/17 03:39 07/31/17 05:45 07/31/17 08:10 Bedside Glucose 184 mg/dl 157 mg/dl 150 mg/dl White Blood Count 7.29 K/uL Red Blood Count 2.91 M/uL Hemoglobin 9.2 g/dL Hematocrit 27.0 % Mean Corpuscular Volume 92.8 fL Mean Corpuscular Hemoglobin 31.6 pg Mean Corpuscular Hemoglobin Concent 34.1 g/dl Platelet Count 120 K/uL Mean Platelet Volume 10.4 fL Neutrophils (%) (Auto) 73.4 % Lymphocytes (%) (Auto) 13.6 % Monocytes (%) (Auto) 12.9 % Eosinophils (%) (Auto) 0.0 % Basophils (%) (Auto) 0.0 % Neutrophils # (Auto) 5.35 K/uL Lymphocytes # (Auto) 0.99 K/uL Monocytes # (Auto) 0.94 K/uL Eosinophils # (Auto) 0.00 K/uL Basophils # (Auto) 0.00 K/uL RDW Standard Deviation 45.2 fL RDW Coefficient of Variation 13.3 % Immature Granulocyte % (Auto) 0.1 % Immature Granulocyte # (Auto) 0.01 K/uL Prothrombin Time 10.4 SECONDS Prothromb Time International Ratio 1.0 Sodium Level 133 mmol/L Potassium Level 3.6 mmol/L Chloride Level 98 mmol/L Carbon Dioxide Level 27 mmol/L Anion Gap 8.0 mmol/L Blood Urea Nitrogen 15 mg/dl Creatinine 0.78 mg/dl Est Creatinine Clear Calc Drug Dose 53.2 ml/min Estimated GFR () 80.9 Estimated GFR (Non- 69.8 BUN/Creatinine Ratio 19.2 Random Glucose 144 mg/dl Calcium Level 7.6 mg/dl (Angie Ríos, LAYNE) Assessment and Plan 82 yo F s/p R total hip replacement by Dr. Bender on 07/30. Right anterior hip replacement. - Pain management, bowel regimen, dvt ppx per primary team. - She currently has no pain to the right lower extremity and CMS to the right lower extremity is good. Diabetes mellitus type 2. - hold her metformin during in house stay, ISS with accuchecks. resume oral meds upon discharge. Hypertension. - Continue lisinopril. Hyperlipidemia -pravastatin Hx Breast cancer - stable DVT prophylaxis per orthopedic guidelines- ASA 325mg BID CODE: Full Disposition: From home, possible discharge later today per primary services (Angie Ríos PA-C) Attending Attestation: Pt seen/examined, chart reviewed, care plan d/w SAUL Ríos. I agree w/ the gray components of her documentation. Pt w/o dyspnea, cp, abd pain. +flatus. Eating fine. going home today. reports taking ferrous sulfate once a day at home. VSS no fever gen - nad neck - no JVD heart - RRR, s1, s2 lungs - CTA b/l abd - soft, NT, ND, BS+ ext - no ankle edema; swelling right hip with intact dressings Hb 9.2 platelets - 120 Na 133 Cr stable A/P: POD #1 s/p right TKR T2DM - controlled this AM (was mildly high post-op last pm) acute blood loss anemia - recommended ferrous sulfate 325mg BID to her for 1-2 months at minimum thrombocytopenia - mild - likely consumptive in setting of her surgery; no rx needed mild hyponatremia - stable/chronic (preop Na in early June was 131) -- this is likely from her chronic HCTZ use HTN - controlled; ok to resume all preop BP meds from medical standpoint ok to d/c home would recommend routine PCP f/u after discharge Sade DEL RIO MD (Perry Del Rio MD)
--- NOTE | 2017-07-31 10:49 | Anesthesiology Progress Note ---
Anesthesia Post Op Note Date & Time Jul 31, 2017 at 10:49 Vital Signs Vital Signs Past 12 Hours Date Time Temp Pulse Resp B/P (MAP) Pulse Ox O2 Delivery O2 Flow Rate FiO2 07/31/17 10:21 71 109/62 (78) 07/31/17 08:59 96 Room Air 07/31/17 07:50 36.5 66 14 130/70 (90) 96 Room Air 07/31/17 07:15 Room Air 07/31/17 03:40 36.5 65 18 127/64 (85) 95 Room Air 07/30/17 23:25 Room Air Notes Mental Status: alert / awake / arousable, participated in evaluation Pt Amnestic to Procedure: Yes Nausea / Vomiting: adequately controlled Pain: adequately controlled Airway Patency, RR, SpO2: stable & adequate BP & HR: stable & adequate Hydration State: stable & adequate Neuraxial Anesthesia: was administered, sensory block resolved Anesthetic Complications: no major complications apparent
--- NOTE | 2017-07-31 11:01 | Pharmacy Progress Note ---
Glycemic Control Progress Note Date of Service Jul 31, 2017. Scope Glycemic Pharmacist consulted for glycemic control to write orders per [facility] inpatient glycemic control protocol. Objective Accuchecks BSG (last 24hrs): Test 07/30/17 11:04 07/30/17 12:02 07/30/17 17:17 07/30/17 20:47 Bedside Glucose 180 mg/dl (70-90) 174 mg/dl (70-90) 245 mg/dl (70-90) 260 mg/dl (70-90) Test 07/31/17 00:07 07/31/17 03:39 07/31/17 05:45 07/31/17 08:10 Bedside Glucose 184 mg/dl (70-90) 157 mg/dl (70-90) 150 mg/dl (70-90) Random Glucose 144 mg/dl (70-99) Recent Pertinent Medications The patient is currently receiving: * Basal insulin: Lantus 15 units SQ X 1 with dinner * Correctional Insulin: Novolog Correction per scale ACHS Goal Range: Low 110 mg/dL - High 140 mg/dL Correction Factor: 30 mg/dL/unit * Prandial insulin: Per carb ratio of 1 unit per 10 grams CHO consumed Outpatient Anti-Diabetic Meds * Metformin 500mg PO BID * A1c = 7 % 07/04/17 Assessment & Plan ASSESSMENT: * See progress note from 07/30 for more background info, in short: * 82 year old T2DM, well controlled on metformin at home, POD # 1 s/p R-DAVID * Patient is currently receiving an average of 24 units of insulin per day * 15 units of basal insulin * 9 units of prandial/correctional insulin * BSGs over the past 24hrs: 158, 180, 245, 260, 184, 157 * Changes needed to insulin regimen: * AM Fasting BSG = 150 mg/dl. This is in slightly above goal range. I will order a second dose of basal insulin for this morning (based on weight/stress 2) . I do not anticipate the need for further basal insulin. * Post-prandial BSGs are elevated. I anticipate improvement today since patient only received a one time dose of pre-op dexamethasone. PLAN FOR INPATIENT GLYCEMIC CONTROL: * Oral Agents * Resume metformin 500 mg PO BID with dinner today * Basal insulin * Lantus 13 units SQ this AM * Bolus insulin - no change * NovoLog per scale ACHS or Q6hrs while NPO * Goal Range: Low 110 mg/dL - High 140 mg/dL * Correction Factor: 30 mg/dL/unit * Nutritional / Prandial insulin per carb ratio of 1 unit per 10 grams CHO consumed RECOMMENDATIONS FOR DISCHARGE: * A1c of 7% from 07/04/17 is near goal. * Recommend continuation of metformin on discharge * Titrate dose by 500 mg/week to goal of 1000 mg PO BID as tolerated * Administer with meals to decrease GI upset Thank you.
[2017-07-31] MEDS: CITALOPRAM 20 MG TAB PO SCH (12:35)
[2017-07-31] MEDS ORDERED: METFORMIN HCL 500 MG TAB PO SCH (17:45)
[2017-07-31] MEDS ORDERED: CeleBREX 200 MG CAP PO SCH (21:00)
== END 2017-07-31 13:52 | disposition home health service (06) | DRG 470 ==
LOC: C.ACU 06:24 → C.3E 10:48 → ENRESERV 11:30
PROVIDERS: ADMIT Orthopaedic Surgery; ATTEND Orthopaedic Surgery
PROC: 0SRA0JA Replacement of Right Hip Joint, Acetabular Surface with Synthetic Substitute, Uncemented, Open Approach (ICD-10-PCS; principal; 2017-07-30 08:00)
DX: M16.11 Unilateral primary osteoarthritis, right hip (principal); D62 Acute posthemorrhagic anemia; E87.1 Hypo-osmolality and hyponatremia; I10 Essential (primary) hypertension; D69.6 Thrombocytopenia, unspecified; E11.9 Type 2 diabetes mellitus without complications; Z90.710 Acquired absence of both cervix and uterus; Z85.3 Personal history of malignant neoplasm of breast